=== PATIENT | female | born 1965 | race Caucasian/White ===

== ENCOUNTER 2017-09-23 10:31 | Day surgery (SDC) | payer OTHER ==
[2017-09-23] MEDS ORDERED: MIDAZOLAM 1 MG/ML 2 ML INJ ×2 (12:23)
[2017-09-23] MEDS ORDERED: FENTAnyl 50 MCG/ML VIAL (12:23)
== END 2017-09-23 12:54 | disposition home or self-care (01) ==
LOC: GIL 10:31
DX: Z12.11 Encounter for screening for malignant neoplasm of colon (principal); K63.5 Polyp of colon; K64.8 Other hemorrhoids
CPT/HCPCS: 45380; 88305

== ENCOUNTER 2018-09-29 18:41 | Emergency (ER) | payer OTHER ==
[2018-09-29] MEDS: ONDANSETRON 4 MG INJ IV (21:02)
[2018-09-29] MEDS: morphine 4 MG/ML VIAL IV (21:03)
[2018-09-29 21:13] LABS: ADD MAN DIFF? NO
[2018-09-29 21:16] LABS: WHITE BLOOD COUNT 9.5 10^3/ul (4.8-10.8)
[2018-09-29 21:16] LABS: BASOPHILS % 0.4 % (0.0-2.0); EOSINOPHILS % 0.3 % (0.0-7.0); HEMATOCRIT 38.3 % (37.0-47.0); HEMOGLOBIN 12.7 g/dl (12.0-16.0); LYMPHOCYTES # 2.2 10^3/ul (0.8-2.9); LYMPHOCYTES % 23.5 % (15.0-51.0); MEAN CORPUSCULAR HEMOGLOBIN 33.1 pg (29.0-33.0); MEAN CORPUSCULAR HGB CONC 33.2 g/dl (32.0-37.0); MEAN CORPUSCULAR VOLUME 99.7 fl (82.0-101.0); MEAN PLATELET VOLUME 10.7 fl (7.4-10.4); MONOCYTE # 0.5 10^3/ul (0.3-0.9); MONOCYTES % 4.8 % (0.0-11.0); NEUTROPHIL # 6.7 10^3/ul (1.6-7.5); NEUTROPHILS % 70.7 % (39.0-77.0); PLATELET COUNT 413 10^3/UL (140-415); RED BLOOD COUNT 3.84 10^6/ul (4.20-5.40); RED CELL DISTRIBUTION WIDTH 11.5 % (11.5-14.5)
[2018-09-29 21:35] LABS: ANION GAP 14 (5-13); BLOOD UREA NITROGEN 14 mg/dl (7-20); CALCIUM 10.2 mg/dl (8.4-10.2); CARBON DIOXIDE 22 mmol/L (21-31); CHLORIDE 102 mmol/L (97-110); CREATININE 0.55 mg/dl (0.44-1.00); Estimated GFR > 60 mL/min (>60); GLUCOSE 95 mg/dl (70-220); POTASSIUM 3.6 mmol/L (3.5-5.1); SODIUM 138 mmol/L (135-144)
[2018-09-29 21:37] LABS: INR 1.06; PARTIAL THROMBOPLASTIN TIME 24.5 Sec (23.0-35.0); PROTIME 13.9 Sec (11.9-14.9); PT RATIO 1.1
[2018-09-29 22:50] LABS: ERYTHROCYTE SEDIMENTATION RATE 60 mm/Hr (0-30)
== END 2018-09-30 00:18 | disposition home or self-care (01) ==
LOC: E/R 09-30 00:18
DX: G89.18 Other acute postprocedural pain (principal); Z87.891 Personal history of nicotine dependence
CPT/HCPCS: 36415; 72100; 73510; 80048; 85025; 85610; 85651; 85730; 96374; 96375; 99284-25

== ENCOUNTER 2018-10-09 12:29 | Emergency (ER) | payer OTHER ==
[2018-10-09 13:33] LABS: ADD MAN DIFF? NO
[2018-10-09 13:37] LABS: WHITE BLOOD COUNT 7.6 10^3/ul (4.8-10.8)
[2018-10-09 13:37] LABS: BASOPHIL # 0.1 10^3/ul (0.0-0.1); BASOPHILS % 0.7 % (0.0-2.0); EOSINOPHILS # 0.1 10^3/ul (0.0-0.5); EOSINOPHILS % 1.2 % (0.0-7.0); HEMOGLOBIN 13.5 g/dl (12.0-16.0); LYMPHOCYTES # 1.6 10^3/ul (0.8-2.9); MEAN CORPUSCULAR HEMOGLOBIN 33.3 pg (29.0-33.0); MEAN CORPUSCULAR HGB CONC 33.8 g/dl (32.0-37.0); MEAN CORPUSCULAR VOLUME 98.5 fl (82.0-101.0); MEAN PLATELET VOLUME 11.1 fl (7.4-10.4); MONOCYTE # 0.4 10^3/ul (0.3-0.9); MONOCYTES % 4.9 % (0.0-11.0); NEUTROPHIL # 5.4 10^3/ul (1.6-7.5); NEUTROPHILS % 71.8 % (39.0-77.0); PLATELET COUNT 235 10^3/UL (140-415); RED BLOOD COUNT 4.06 10^6/ul (4.20-5.40); RED CELL DISTRIBUTION WIDTH 11.2 % (11.5-14.5)
[2018-10-09] MEDS: SOD CHLORIDE 0.9% 500 ML IV (13:52)
[2018-10-09 13:54] LABS: ANION GAP 11 (5-13); BLOOD UREA NITROGEN 10 mg/dl (7-20); CALCIUM 9.7 mg/dl (8.4-10.2); CARBON DIOXIDE 26 mmol/L (21-31); CHLORIDE 104 mmol/L (97-110); CREATININE 0.56 mg/dl (0.44-1.00); Estimated GFR > 60 mL/min (>60); GLUCOSE 142 mg/dl (70-220); POTASSIUM 3.9 mmol/L (3.5-5.1); SODIUM 141 mmol/L (135-144)
[2018-10-09 13:56] LABS: C-REACTIVE PROTEIN 0.7 mg/dl (0.0-0.9)
[2018-10-09 14:32] LABS: INR 0.97; PARTIAL THROMBOPLASTIN TIME 25.9 Sec (23.0-35.0)
[2018-10-09] MEDS: HYDROmorphONE 2 MG/ML SYG IV (15:19)
== END 2018-10-09 16:20 | disposition home or self-care (01) ==
LOC: E/R 12:29
DX: G89.18 Other acute postprocedural pain (principal); Z87.891 Personal history of nicotine dependence
CPT/HCPCS: 72131; 80048; 85025; 85610; 85651; 85730; 86140; 96374; 99285-25

== ENCOUNTER 2018-10-19 18:23 | Emergency (ER) | payer OTHER ==
[2018-10-19 19:29] LABS: ADD MAN DIFF? NO
[2018-10-19 19:32] LABS: URINE BLOOD (Dip) POC 3+ (NEGATIVE); URINE GLUCOSE (Dip) POC Negative (NEGATIVE); URINE KETONES (Dip) POC Negative (NEGATIVE); URINE LEUKOCYTE EST (Dip) POC Negative (NEGATIVE); URINE NITRITE (Dip) POC Negative (NEGATIVE); URINE TOTAL PROTEIN POC 2+ (NEGATIVE)
[2018-10-19] MEDS: KETOROLAC 30 MG INJ IV (19:32)
[2018-10-19 19:34] LABS: WHITE BLOOD COUNT 8.1 10^3/ul (4.8-10.8)
[2018-10-19 19:34] LABS: BASOPHILS % 0.2 % (0.0-2.0); EOSINOPHILS % 0.5 % (0.0-7.0); HEMATOCRIT 37.1 % (37.0-47.0); HEMOGLOBIN 12.9 g/dl (12.0-16.0); LYMPHOCYTES # 1.5 10^3/ul (0.8-2.9); MEAN CORPUSCULAR HEMOGLOBIN 33.2 pg (29.0-33.0); MEAN CORPUSCULAR HGB CONC 34.8 g/dl (32.0-37.0); MEAN CORPUSCULAR VOLUME 95.4 fl (82.0-101.0); MEAN PLATELET VOLUME 10.7 fl (7.4-10.4); MONOCYTE # 0.5 10^3/ul (0.3-0.9); MONOCYTES % 5.8 % (0.0-11.0); PLATELET COUNT 215 10^3/UL (140-415); RED BLOOD COUNT 3.89 10^6/ul (4.20-5.40); RED CELL DISTRIBUTION WIDTH 11.2 % (11.5-14.5)
[2018-10-19 19:59] LABS: ALANINE AMINOTRANSFERASE 15 IU/L (13-69); ALBUMIN 4.3 g/dl (3.3-4.9); ALBUMIN/GLOBULIN RATIO 1.38; ALKALINE PHOSPHATASE 77 IU/L (42-121); ANION GAP 13 (5-13); ASPARTATE AMINO TRANSFERASE 21 IU/L (15-46); BILIRUBIN,INDIRECT 0.5 mg/dl (0-1.1); BILIRUBIN,TOTAL 0.5 mg/dl (0.2-1.3); BLOOD UREA NITROGEN 11 mg/dl (7-20); CALCIUM 9.5 mg/dl (8.4-10.2); CARBON DIOXIDE 22 mmol/L (21-31); CHLORIDE 103 mmol/L (97-110); CREATININE 0.49 mg/dl (0.44-1.00); Estimated GFR > 60 mL/min (>60); GLUCOSE 126 mg/dl (70-220); LIPASE 86 U/L (23-300); POTASSIUM 3.3 mmol/L (3.5-5.1); SODIUM 138 mmol/L (135-144); TOTAL PROTEIN 7.4 g/dl (6.1-8.1)
[2018-10-19] MEDS: POTASSIUM CHLORIDE (SR) 20 MEQ TAB PO (20:37)
[2018-10-19] MEDS: ONDANSETRON 4 MG INJ IV (20:38)
[2018-10-19] MEDS: LOPERAMIDE 2 MG CAP PO (20:38)
[2018-10-19] MEDS: HYDROCODONE/APAP (10/325) TAB PO (20:38)
== END 2018-10-19 21:16 ==
LOC: E/R 18:23
DX: M54.42 Lumbago with sciatica, left side (principal); E87.6 Hypokalemia; R31.9 Hematuria, unspecified
CPT/HCPCS: 36415; 80053; 81003; 83690; 85025; 96374; 96375; 99284-25

== ENCOUNTER 2018-11-01 18:29 | Emergency (ER) | payer OTHER ==
[2018-11-01] MEDS: SOD CHLORIDE 0.9% 1,000 ML IV (20:06)
[2018-11-01] MEDS: morphine 4 MG/ML VIAL IV (20:06)
[2018-11-01 20:07] LABS: ADD MAN DIFF? NO
[2018-11-01] MEDS: ONDANSETRON 4 MG INJ IV (20:07)
[2018-11-01 20:09] LABS: BASOPHILS % 0.6 % (0.0-2.0); EOSINOPHILS # 0.1 10^3/ul (0.0-0.5); EOSINOPHILS % 2.2 % (0.0-7.0); HEMATOCRIT 37.9 % (37.0-47.0); HEMOGLOBIN 12.5 g/dl (12.0-16.0); LYMPHOCYTES # 2.1 10^3/ul (0.8-2.9); LYMPHOCYTES % 41.4 % (15.0-51.0); MEAN CORPUSCULAR HEMOGLOBIN 32.5 pg (29.0-33.0); MEAN CORPUSCULAR VOLUME 98.4 fl (82.0-101.0); MEAN PLATELET VOLUME 11.3 fl (7.4-10.4); MONOCYTE # 0.4 10^3/ul (0.3-0.9); MONOCYTES % 8.3 % (0.0-11.0); NEUTROPHIL # 2.4 10^3/ul (1.6-7.5); NEUTROPHILS % 47.1 % (39.0-77.0); PLATELET COUNT 232 10^3/UL (140-415); RED BLOOD COUNT 3.85 10^6/ul (4.20-5.40); RED CELL DISTRIBUTION WIDTH 11.6 % (11.5-14.5)
[2018-11-01 20:09] LABS: WHITE BLOOD COUNT 5.1 10^3/ul (4.8-10.8)
[2018-11-01 20:12] LABS: PARTIAL THROMBOPLASTIN TIME 25.8 Sec (23.0-35.0); PROTIME 13.3 Sec (11.9-14.9)
[2018-11-01 20:15] LABS: ALANINE AMINOTRANSFERASE 22 IU/L (13-69); ALBUMIN 4.1 g/dl (3.3-4.9); ALBUMIN/GLOBULIN RATIO 1.28; ALKALINE PHOSPHATASE 75 IU/L (42-121); AMYLASE 78 U/L (11-123); ANION GAP 8 (5-13); ASPARTATE AMINO TRANSFERASE 24 IU/L (15-46); BILIRUBIN,INDIRECT 0.4 mg/dl (0-1.1); BILIRUBIN,TOTAL 0.4 mg/dl (0.2-1.3); BLOOD UREA NITROGEN 13 mg/dl (7-20); CALCIUM 8.8 mg/dl (8.4-10.2); CARBON DIOXIDE 27 mmol/L (21-31); CHLORIDE 105 mmol/L (97-110); Estimated GFR > 60 mL/min (>60); GLUCOSE 118 mg/dl (70-220); LIPASE 37 U/L (23-300); POTASSIUM 3.8 mmol/L (3.5-5.1); SODIUM 140 mmol/L (135-144); TOTAL PROTEIN 7.3 g/dl (6.1-8.1)
[2018-11-01 20:27] LABS: TROPONIN-I < 0.012 ng/ml (0.000-0.120)
[2018-11-01] MEDS: METHYLNALTREXONE 12 MG/0.6 ML VIAL SC (20:36)
[2018-11-01] MEDS: SOD CHLORIDE 0.9% 100 ML (21:02)
[2018-11-01] MEDS: IOHEXOL 300MG/ML 150 ML BTL (21:02)
[2018-11-01] MEDS: LIDOCAINE/MYLANTA 40 ML BTL PO (22:03)
[2018-11-01] MEDS: BELLADONNA/PHENOBARBITAL TAB PO (22:03)
== END 2018-11-01 22:21 | disposition home or self-care (01) ==
LOC: E/R 18:29
DX: G89.18 Other acute postprocedural pain (principal); K59.03 Drug induced constipation; R10.9 Unspecified abdominal pain; Z21 Asymptomatic human immunodeficiency virus [HIV] infection status; Z87.891 Personal history of nicotine dependence
CPT/HCPCS: 36415; 74177; 80053; 82150; 83690; 84484; 85025; 85610; 85730; 86850; 86900; 86901; 93005; 96372; 96374; 96375; 99285-25